=== PATIENT | female | born 1995 | race Asian ===

== ENCOUNTER 2017-02-02 23:26 | Emergency (ER) | payer OTHER ==
[~2017-02-02] VITALS: Ht 170.2 cm; Wt 54.3 kg
[~2017-02-02 23:26] MED LIST: VITAMIN C PO
[2017-02-02 23:28] VITALS: TEMP 36.9; Ht 170.2 cm; Wt 54.3 kg
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
[2017-02-02] MEDS ORDERED: IBUPROFEN 600 MG TAB PO STA (23:44)
[2017-02-03] MEDS ORDERED: BCPILLS PO (00:01)
[2017-02-03] MEDS ORDERED: MULT-506 PO (00:01)
[2017-02-03 00:20] VITALS: BP 115/61; PULSE 61; O2SAT 100
--- NOTE | 2017-02-03 06:50 | DIAGNOSTIC IMAGING REPORT ---
CHEST ONE VIEW PORTABLE CLINICAL HISTORY: Atypical chest pain and shortness of breath COMPARISON STUDY: No previous studies for comparison. FINDINGS: The cardiac and mediastinal contours are normal. There is no evidence of focal pulmonary consolidation. There is no evidence of failure. No pleural effusions are visualized.[ IMPRESSION: No active disease in the chest. Electronically signed by: Alon Ceron M.D. 02/03/2017 6:48 AM Dictated Date/Time: 02/03/2017 6:48 AM
== END 2017-02-03 00:21 | disposition home or self-care (01) ==
LOC: C.EDB 23:27 → C.EDA 02-03 00:21
DX: S16.1XXA Strain of muscle, fascia and tendon at neck level, initial encounter (principal); X58.XXXA Exposure to other specified factors, initial encounter; R07.89 Other chest pain; Z79.3 Long term (current) use of hormonal contraceptives